=== PATIENT | female | born 1975 | race Two or more races ===

== ENCOUNTER 2019-10-13 06:51 | Day surgery (SDC) | payer OTHER | END 2019-10-13 17:40 | disposition home or self-care (01) | LOC: CIR.AMB 06:51 → ADM 10:00 → CIR.AMB 10:00 | PROVIDERS: ATTEND Otolaryngology Otology & Neurotology | DX: H72.02 Central perforation of tympanic membrane, left ear (principal); H74.12 Adhesive left middle ear disease ==